=== PATIENT | male | born 1975 | race Caucasian/White ===

== ENCOUNTER → 2017-04-26 | Outpatient (CLI) | payer BC ==
--- NOTE | 2017-04-26 08:58 | RAD ---
3 view right hand study History: Right hand pain after a fall. Findings: No acute fracture or dislocation or osteolytic process is seen. IMPRESSION: No acute fracture.
== END | disposition home or self-care (01) ==
LOC: PMG 08:23
PROVIDERS: ATTEND Physician Assistant Medical
DX: M79.641 Pain in right hand (principal); W19.XXXA Unspecified fall, initial encounter; Y93.89 Activity, other specified; Y92.89 Other specified places as the place of occurrence of the external cause; Y99.8 Other external cause status
CPT/HCPCS: 73130

== ENCOUNTER → 2018-12-05 | Outpatient (CLI) | payer BC ==
--- NOTE | 2018-12-05 16:47 | RAD ---
CHEST PA LATERAL History: Back pain chest pain. Smoker. Comparison: None. Findings: Faint right lower lobe opacity on frontal view. No pneumothorax. No pleural effusion. Normal heart size. Impression: 1. Faint right lower lobe opacity, may represent summation artifact, atelectasis or developing consolidation. Short-term follow-up radiograph can better assess if clinically indicated. Electronically signed by: Glenn Coppola DO (12/05/2018 4:43 PM) [id number]
== END | disposition home or self-care (01) ==
LOC: RAD 14:01
PROVIDERS: ATTEND Physician Assistant Medical
DX: M54.6 Pain in thoracic spine (principal); F17.200 Nicotine dependence, unspecified, uncomplicated
CPT/HCPCS: 71046